=== PATIENT | male | born 1945 | race Caucasian/White ===

== ENCOUNTER 2021-07-08 20:53 | Emergency (ER) | payer MEDICARE, OTHER, SELFPAY ==
[2021-07-08 20:55] VITALS: BMI 28.7
--- NOTE | 2021-07-08 21:15 | ED_ITS ---
HPI - Allergic Reaction General: Chief complaint: Allergic Reaction Stated complaint: Allergic Reaction Time Seen by Provider: 07/08/21 21:03 Source: patient Mode of arrival: ambulatory Limitations: no limitations History of Present Illness: HPI narrative: 75-year-old male who has a history of a shrimp allergy. He states that he is eating about 3 and a seemingly believes he had a subsalicylate roughly 2 hours ago. He states started having a rash to his chest wall some burning on his lip. He denies any shortness of breath or throat swelling. He states that it is worsened over the last hour is not taking any meds. Associated symptoms: Deny abdominal pain, nausea or vomiting Review of Systems Const: Denies: fever(s), chills, body aches or change in appetite Eyes: Denies: blurry vision or eye discomfort ENMT: Denies: throat pain or dental pain Card: Denies: chest pain Resp: Denies: dyspnea GI: Denies: abdominal pain, nausea, vomiting or diarrhea : Denies: dysuria Musc: Denies: neck pain or back pain Skin/Breast: Reports: rash Neuro: Denies: headache(s) Psych: Denies: depression Baldo/Lymph: Denies: easy bruising All/Imm: Denies: urticaria Physical Exam Const: COMMON NORMALS: no acute distress, patient oriented x3 and healthy appearing HENMT: COMMON NORMALS: normocephalic and atraumatic HEAD & SCALP: normocephalic and atraumatic OTHER: No lip tongue or throat swelling Eye: COMMON NORMALS: Equal, round and reactive pupils present and EOMs intact bilaterally PUPIL: Yes Equal, round and reactive pupils present Neck/C-Spine: COMMON NORMALS: full ROM and supple Chest: COMMONS NORMALS: normal inspection of the chest and normal palpation of entire chest wall Resp: COMMON NORMALS: normal respiratory effort, No retractions, No use of accessory muscles and clear to auscultation bilaterally AUSCULTATION: clear to auscultation bilaterally Cardio: COMMON NORMALS: regular rate, regular rhythm and No murmurs present (Cardio) RATE: regular rate RHYTHM: regular rhythm GI: COMMON NORMALS: Normal to inspection, nondistended, normoactive bowel sounds present, Soft to palpation, non-tender and no masses PALPATION: Yes Soft to palpation Extremity: COMMON NORMALS: normal to inspection and full ROM Neuro: COMMON NORMALS: patient oriented x3, moves all extremities and no focal motor deficits Psych: COMMON NORMALS: mental status grossly normal, Normal thought process present and cooperative THOUGHT PROCESS: Normal thought process present Skin: COMMON NORMALS: no wounds NARRATIVE SKIN EXAM: Rash to chest refill Course Vital Signs: Vital signs: Vital Signs Pulse Rate 67 07/08/21 21:53 Respiratory Rate 94 H 07/08/21 21:53 Blood Pressure 143/85 07/08/21 21:53 Pulse Oximetry 97 07/08/21 21:53 MDM - Allergic Reaction MDM Narrative: Medical decision making narrative: Patient presents here with allergic reaction likely from shrimp. He is improving here is no signs of anaphylaxis or throat or lip swelling. His symptoms are improving we will place him on 5 days of steroids. Discharge Plan Discharge Patient Disposition: Home Clinical Impression: Allergic reaction Qualifiers: Encounter type: initial encounter Qualified Code(s): T78.40XA - Allergy, unspecified, initial encounter Condition: Stable Prescriptions: New prednisone 50 mg tablet 50 mg PO DAILY Qty: 5 RF: 0 Discharge Orders: Discharge ED (Routine); Ordered 07/08/21 Ordered By: Krunal Hough Discharge Diet: Advance as tolerated Discharge Activity: Resume usual activity Patient Instructions: General Allergic Reaction (ED) Coding Level of Care Code ED Engineering Programmer for Troy Plascencia Exam Comprehensive
[2021-07-08] MEDS: diphenhydrAMINE 50 mg/mL SDV 1mL IVP (21:20)
[2021-07-08] MEDS: famotidine 20 mg/2 mL INJ 40 MG IVP (21:25)
[2021-07-08 21:53] VITALS: BP 143/85; PULSE 67; RESP 94; O2SAT 97
[2021-07-08 22:18] VITALS: BP 145/84; PULSE 64; RESP 18; TEMP 36.9; O2SAT 96
== END 2021-07-08 22:22 | disposition home or self-care (01) ==
PROVIDERS: Emergency Provider Emergency Medicine
DX: T78.40XA Allergy, unspecified, initial encounter (principal)
CPT/HCPCS: 96374; 96375; 99283; J1200; J2930; J3490

== ENCOUNTER 2021-10-16 12:00 | Outpatient (CLI) | payer MEDICARE, OTHER, SELFPAY | END 2021-10-16 12:01 | disposition home or self-care (01) | LOC: SLEEP 10-17 08:45 | PROVIDERS: Visit Provider Family Medicine | DX: R40.0 Somnolence (principal); M19.90 Unspecified osteoarthritis, unspecified site | CPT/HCPCS: G0399 ==

== ENCOUNTER 2022-02-18 19:22 | Observation (INO) | payer MEDICARE, OTHER, SELFPAY ==
[2022-02-18] VITALS (7 sets, daily range): BP systolic 128–176; BP diastolic 74–86; PULSE 57–61; RESP 14–17; TEMP 36.3–36.9; O2SAT 91–98; BMI 27.6
--- NOTE | 2022-02-18 19:38 | CTR_ITS ---
PROCEDURE INFORMATION: Exam: CT Abdomen And Pelvis Without Contrast Exam date and time: 02/18/2022 8:03 PM Age: 76 years old Clinical indication: Abdominal pain; Periumbilical; Patient HX: Pain since this am. Denies n/v/d; Additional info: Abd pain TECHNIQUE: Imaging protocol: Computed tomography of the abdomen and pelvis without contrast. Radiation optimization: All CT scans at this facility use at least one of these dose optimization techniques: automated exposure control; mA and/or kV adjustment per patient size (includes targeted exams where dose is matched to clinical indication); or iterative reconstruction. COMPARISON: No relevant prior studies available. RADIATION DOSE METRICS: Total DLP (mGy-cm): 1813.74 FINDINGS: Heart: Mild cardiomegaly with coronary calcification. Next item liver is normal in size without cirrhosis. Multiple well-defined hypodense lesions are noted, likely multiple hepatic cysts, the largest measuring about 3 cm in the right lobe. Diaphragm: Hiatal hernia measuring about 3-4 cm. Liver: See Heart finding. Gallbladder and bile ducts: Normal. No calcified stones. No ductal dilation. Pancreas: Normal. No ductal dilation. Spleen: Normal. No splenomegaly. Adrenal glands: Normal. No mass. Kidneys and ureters: Bilateral simple renal cysts, the largest measuring 4.3 cm on the right and 3.5 cm on the left. Mildly atrophic left kidney with severe cortical irregularity and area of parenchymal thinning suggesting chronic scarring which could be the basis of prior infections or reflux nephropathy. There is minimal left hydronephrosis without obstructing calculi. Several punctate nonobstructing right renal calculi are noted, the largest cluster is in the right lower pole, measuring about 7 x 5 mm. Stomach and bowel: Small to moderate colonic stool burden. No significant colonic dilatation. There is diffuse [id number]-efahpiht small bowel dilatation with possible gradual transition in the right lower quadrant small bowel suggesting partial small bowel obstruction which may be on the basis of adhesion. No pneumatosis or suspicious bowel wall thickening however bowel wall assessment is limited due to lack of contrast. Colonic diverticulosis without imaging signs of diverticulitis. Appendix: No evidence of appendicitis. Intraperitoneal space: No free air, ascites or drainable abscess. Vasculature: No abdominal aortic aneurysm. Lymph nodes: No enlarged lymph nodes. Urinary bladder: Unremarkable as visualized. Reproductive: Moderate prostate enlargement with in central calcification. Bones/joints: Multilevel vertebral disc degeneration and endplate osteophytes. No acute osseous findings otherwise. Soft tissues: No acute findings. CT/CT abdomen pelvis wo con [id number] IMPRESSION: 1. Mild-moderate diffuse small bowel dilatation suggesting partial small-bowel obstruction, likely due to transition in the right lower quadrant distal small bowel and may be on the basis of adhesion. No free air, pneumatosis or suspicious bowel wall thickening however bowel wall assessment is limited due to lack of contrast. No abscess. 2. Small-moderate stool burden with colonic diverticulosis. No imaging signs of acute diverticulitis. 3. Nonacute bilateral renal findings and nonobstructing calculi as described. 4. Mild cardiomegaly with coronary calcification. 5. Hiatal hernia. 6. Multiple hepatic cysts. Enlarged prostate. COMMENTS: Consistent with the [employer]'s Incidental Findings Committee white paper (J Am Chrissy Radiol 2018): Any incidental renal lesion less than 1 cm or classified as too small to characterize, or any incidental cystic renal lesion characterized as simple-appearing, is likely benign. No follow-up imaging is recommended for these lesions per consensus recommendations based on imaging criteria.
--- NOTE | 2022-02-18 19:44 | W.ED.ABDPA2 ---
HPI - Abdominal Pain General: Chief Complaint: Abdominal Pain Stated Complaint: abd pain Time Seen by Provider: 02/18/22 19:30 Source: patient Mode of arrival: ambulatory Limitations: no limitations History of Present Illness: 76-year-old male states been having epigastric abdominal pain over the last 8 or 9 hours. He states been a cramping type pain that he rates a 4 out of 10 currently denies any worsening improving factors denies any vomiting or diarrhea no history of any abdominal surgeries. Denies any fevers. Associated Symptoms: Denies chills, dysuria and fever(s) Review of Systems Const: Denies: fever(s), chills, body aches or change in appetite Eyes: Denies: blurry vision or eye discomfort ENMT: Denies: throat pain or dental pain Card: Denies: chest pain Resp: Denies: dyspnea GI: Reports: abdominal pain : Denies: dysuria Musc: Denies: neck pain or back pain Skin/Breast: Denies: rash Neuro: Denies: headache(s) Psych: Denies: depression Baldo/Lymph: Denies: easy bruising All/Imm: Denies: urticaria PFS ED PFSH: Medical History (Updated 02/18/22 @ 20:53 by Krunal Hough MD) No pertinent past medical history Physical Exam Const: COMMON NORMALS: patient oriented x3 HENMT: COMMON NORMALS: normocephalic and atraumatic HEAD & SCALP: normocephalic and atraumatic Eye: COMMON NORMALS: Equal, round and reactive pupils present and EOMs intact bilaterally PUPIL: Yes Equal, round and reactive pupils present Neck/C-Spine: COMMON NORMALS: full ROM and supple Chest: COMMONS NORMALS: normal inspection of the chest and normal palpation of entire chest wall Resp: COMMON NORMALS: normal respiratory effort, No retractions, No use of accessory muscles and clear to auscultation bilaterally AUSCULTATION: clear to auscultation bilaterally Cardio: COMMON NORMALS: regular rate, regular rhythm and No murmurs present (Cardio) RATE: regular rate RHYTHM: regular rhythm GI: COMMON NORMALS: Normal to inspection, nondistended, normoactive bowel sounds present, Soft to palpation and no masses PALPATION: Yes Soft to palpation and Yes Tenderness to palpation present (GI) (epigastric) Extremity: COMMON NORMALS: normal to inspection and full ROM Neuro: COMMON NORMALS: patient oriented x3, moves all extremities and no focal motor deficits Psych: COMMON NORMALS: mental status grossly normal, Normal thought process present and cooperative THOUGHT PROCESS: Normal thought process present Skin: COMMON NORMALS: no rashes or lesions noted and no wounds GENERAL SKIN EXAM: no rashes or lesions noted Course Vital Signs: Vital signs: Vital Signs Temperature 97.4 F L 02/18/22 19:24 Pulse Rate 58 L 02/18/22 20:30 Respiratory Rate 16 02/18/22 19:40 Blood Pressure 128/77 02/18/22 20:30 Pulse Oximetry 94 02/18/22 20:30 MDM - Abdominal Pain Medical Decision Making Patient presents here with a small bowel obstruction. Patient's CT showed a partial small bowel obstruction with a possible transition point spoke to hospitalist will place NG tube and admit at this time. Lab Data : 02/18/22 19:40 02/18/22 19:40 Labs/Radiology: Radiology Impressions Abdomen/Pelvis CT 02/18/22 19:38 IMPRESSION: 1. Mild-moderate diffuse small bowel dilatation suggesting partial small-bowel obstruction, likely due to transition in the right lower quadrant distal small bowel and may be on the basis of adhesion. No free air, pneumatosis or suspicious bowel wall thickening however bowel wall assessment is limited due to lack of contrast. No abscess. 2. Small-moderate stool burden with colonic diverticulosis. No imaging signs of acute diverticulitis. 3. Nonacute bilateral renal findings and nonobstructing calculi as described. 4. Mild cardiomegaly with coronary calcification. 5. Hiatal hernia. 6. Multiple hepatic cysts. Enlarged prostate. COMMENTS: Consistent with the [employer]'s Incidental Findings Committee white paper (J Am Chrissy Radiol 2018): Any incidental renal lesion less than 1 cm or classified as too small to characterize, or any incidental cystic renal lesion characterized as simple-appearing, is likely benign. No follow-up imaging is recommended for these lesions per consensus recommendations based on imaging criteria. Laboratory Results WBC 11.8 10^3/uL (4.0-10.0) H 02/18/22 19:40 RBC 4.52 10^6/uL (4.1-5.3) 02/18/22 19:40 Hgb 14.5 g/dL (11.7-16.6) 02/18/22 19:40 Hct 41.2 % (42.0-52.0) L 02/18/22 19:40 MCV 91.2 fl (80-94) 02/18/22 19:40 MCH 32.1 pg (28.0-34.0) 02/18/22 19:40 MCHC 35.2 g/dL (30.0-36.0) 02/18/22 19:40 RDW 12.0 % (12.1-15.1) L 02/18/22 19:40 Plt Count 178 10^3/cmm (130-400) 02/18/22 19:40 MPV 9.9 fL (7.4-10.4) 02/18/22 19:40 Neut % (Auto) 79.6 % 02/18/22 19:40 Lymph % (Auto) 9.5 % 02/18/22 19:40 [place] % (Auto) 8.8 % 02/18/22 19:40 Eos % (Auto) 1.5 % 02/18/22 19:40 Baso % (Auto) 0.3 % 02/18/22 19:40 Neut # (Auto) 9.41 10^3/uL (1.8-7.7) H 02/18/22 19:40 Lymph # (Auto) 1.1 10^3/uL (0.8-4.8) 02/18/22 19:40 [place] # (Auto) 1.0 10^3/uL (0.2-0.9) H 02/18/22 19:40 Eos # (Auto) 0.2 10^3/uL (0.0-0.8) 02/18/22 19:40 Baso # (Auto) 0.0 10^3/uL (0.0-0.1) 02/18/22 19:40 Nucleated RBC % (auto) 0 % 02/18/22 19:40 Nucleated RBCs # 0.0 /100WBC 02/18/22 19:40 Sodium 142 mmol/L (136-145) 02/18/22 19:40 Potassium 4.0 mmol/L (3.5-5.1) 02/18/22 19:40 Chloride 108 mmol/L (98-107) H 02/18/22 19:40 Carbon Dioxide 22 mmol/L (22-29) 02/18/22 19:40 Anion Gap 16.0 (5-19) 02/18/22 19:40 BUN 23 mg/dL (8-23) 02/18/22 19:40 Creatinine 1.3 mg/dL (0.7-1.2) H 02/18/22 19:40 GFR Calculation Not Reportable 02/18/22 19:40 Glucose 153 mg/dL (65-115) H 02/18/22 19:40 Calculated Osmolality 301 mOsm/kg (285-295) H 02/18/22 19:40 Calcium 9.2 mg/dL (8.5-10.5) 02/18/22 19:40 Total Bilirubin 0.4 mg/dL (0.15-1.2) 02/18/22 19:40 AST 19 U/L (0-40) 02/18/22 19:40 ALT 13 U/L (0-41) 02/18/22 19:40 Alkaline Phosphatase 81 IU/L (40-130) 02/18/22 19:40 Total Protein 7.0 g/dL (6.6-8.7) 02/18/22 19:40 Albumin 4.4 g/dL (3.5-5.2) 02/18/22 19:40 Globulin 2.6 g/dL (1.3-4.6) 02/18/22 19:40 Lipase 39 U/L (13-60) 02/18/22 19:40 Discharge Plan Discharge Patient Disposition: Admitted As Inpatient Admit Provider: José López Clinical Impression: Small bowel obstruction Condition: Stable Coding Level of Care Code 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
[2022-02-18] MEDS: ondansetron 2 mg/ML SDV 2 mL 4 MG IVP (19:45)
[2022-02-18] MEDS: sodium chloride 0.9% 1,000 ML 999 ML IV (19:46)
[2022-02-18] MEDS: morphine 4 mg/mL SDV 1 mL IVP (19:46)
[2022-02-18 19:47] LABS: Basophils % 0.3 %; Eosinophils # 0.2 10^3/uL (0.0-0.8); Eosinophils % 1.5 %; Hematocrit 41.2 % (42.0-52.0); Hemoglobin 14.5 g/dL (11.7-16.6); Lymphocytes # 1.1 10^3/uL (0.8-4.8); Lymphocytes % 9.5 %; Mean Corpuscular HGB Conc 35.2 g/dL (30.0-36.0); Mean Corpuscular Hemoglobin 32.1 pg (28.0-34.0); Mean Corpuscular Volume 91.2 fl (80-94); Mean Platelet Volume 9.9 fL (7.4-10.4); Monocytes % 8.8 %; Neutrophils # 9.41 10^3/uL (1.8-7.7); Neutrophils % 79.6 %; Nucleated Red Blood Cells % 0 %; Platelet Count 178 10^3/cmm (130-400); Red Blood Count 4.52 10^6/uL (4.1-5.3); White Blood Count 11.8 10^3/uL (4.0-10.0)
[2022-02-18 20:08] LABS: Alanine Aminotransferase 13 U/L (0-41); Albumin Level 4.4 g/dL (3.5-5.2); Alkaline Phosphatase 81 IU/L (40-130); Aspartate Amino Transferase 19 U/L (0-40); Blood Urea Nitrogen 23 mg/dL (8-23); Calcium 9.2 mg/dL (8.5-10.5); Carbon Dioxide 22 mmol/L (22-29); Chloride 108 mmol/L (98-107); Globulin 2.6 g/dL (1.3-4.6); Glucose 153 mg/dL (65-115); Lipase 39 U/L (13-60); Osmolality Calculated 301 mOsm/kg (285-295); Sodium 142 mmol/L (136-145); Total Bilirubin 0.4 mg/dL (0.15-1.2)
[2022-02-18] MEDS: LORazepam 2 mg/mL INJ 1 mL 1 MG IVP (20:55)
--- NOTE | 2022-02-18 21:56 | XRR_ITS ---
PROCEDURE INFORMATION: Exam: XR Abdomen Exam date and time: 02/18/2022 10:10 PM Age: 76 years old Clinical indication: Device placement; Gi device; Nasogastric tube; Additional info: Ng tube TECHNIQUE: Imaging protocol: XR of the abdomen. Views: Frontal supine view of the abdomen. 1 View. COMPARISON: CT abdomen pelvis con [id number] 02/18/2022 8:03 PM FINDINGS: Tubes, catheters and devices: Single supine view was submitted for NG tube placement. The inferior and right lateral aspect of the abdomen are not included. NG tube with tip in the proximal/mid gastric region. Gastrointestinal tract: Diffuse [id number] air-filled small bowel distension is seen similar to recent CT exam suggestive of small bowel obstruction. No obvious pneumatosis. Bones/joints: No acute findings. XR/XR KUB [id number] IMPRESSION: NG tube with tip in the proximal/mid gastric region. Other findings as above.
--- NOTE | 2022-02-18 22:56 | PM.HP ---
Providers/Chief Complaint Admitting Physician: José López MD Chief Complaint: abd pain History of Present Illness Iron Hyman is a 76 year old male with a past medical history of hypertension, BPH, history of nephrolithiasis who presents [facility] due to 1 day history of lower abdominal pain. Patient tells me that he woke up this morning with lower abdominal pain, denies any nausea, no vomiting, his last bowel movement was just before he came to the emergency room, no history of GI bleeds, no history of bloody or black stools. No dysuria, no hematuria, has a history of nephrolithiasis, denies any flank pain, no lightheadedness, dizziness, no diarrhea, no history of food poisoning, no history abdominal surgery, no fevers, no chills Review of Systems Const: Denies: fever(s), chills, fatigue or malaise Eyes: Denies: change in vision Card: Denies: chest pain, palpitations, lightheadedness, dyspnea on exertion or orthopnea Resp: Denies: dyspnea, productive cough, non-productive cough or wheezing GI: Denies: nausea, vomiting, hematemesis, diarrhea, constipation, hematochezia or melena : Denies: flank pain, difficulty urinating, dysuria or urinary frequency Musc: Denies: back pain Neuro: Denies: headache(s), dizziness or vertigo Medications/Allergies Home Medications Medication Instructions Recorded Confirmed Last Taken Type amlodipine 10 mg tablet 10 mg PO DAILY 02/18/22 02/18/22 02/18/22 History ascorbic acid (vitamin C) 100 mg 100 mg PO DAILY 02/18/22 02/18/22 02/18/22 History tablet (Vitamin C) baclofen 10 mg tablet 10 mg PO DAILY 02/18/22 02/18/22 02/18/22 History benazepril 40 mg tablet 40 mg PO DAILY 02/18/22 02/18/22 02/18/22 History cholecalciferol (vitamin D3) 25 25 mcg PO DAILY 02/18/22 02/18/22 02/18/22 History mcg (1,000 unit) tablet (Vitamin D3) metoprolol succinate 100 mg 100 mg PO DAILY 02/18/22 02/18/22 02/18/22 History tablet,extended release 24 hr omeprazole 40 mg capsule,delayed 40 mg PO DAILY 02/18/22 02/18/22 02/18/22 History release tamsulosin 0.4 mg capsule 0.4 mg PO BID 02/18/22 02/18/22 02/18/22 History vitamin K2 40 mcg tablet 40 mcg PO DAILY 02/18/22 02/18/22 02/18/22 History Allergies Allergy/AdvReac Type Severity Reaction Status Date / Time Penicillins Allergy ALGY-Hives Verified 02/18/22 20:30 shrimp Allergy ALGY-Anaphy Verified 02/18/22 20:30 laxis PFSH Acute PFSH: Medical History (Updated 02/18/22 @ 20:53 by Krunal Hough MD) No pertinent past medical history Surgical History (Updated 02/18/22 @ 22:59 by José López MD) History of lithotripsy Family History (Updated 02/18/22 @ 22:58 by José López MD) Mother Lung disease Lung cancer Father Lung cancer Social History (Updated 02/18/22 @ 22:58 by José López MD) Smoking and tobacco status: never smoked Alcohol intake: never Substance/Drug Use: never Vitals/I&O/Wt Last Vital Signs Temp 97.4 F L 02/18/22 19:24 Pulse 57 L 02/18/22 21:28 Resp 16 02/18/22 19:40 BP 140/82 02/18/22 21:28 Pulse Ox 91 02/18/22 21:28 02/18/22 02/18/22 02/18/22 06:59 14:59 22:59 Intake Total 1000 / 1000 Balance 1000 / 1000 Weight last 48 hrs Weight 88.451 kg Physical Exam Const: COMMON NORMALS: no acute distress and patient oriented x3 HENMT: COMMON NORMALS: normocephalic HEAD & SCALP: normocephalic Eye: COMMON NORMALS: EOMs intact bilaterally Neck/C-Spine: COMMON NORMALS: no JVD Lymph: LYMPHATIC: no lymphadenopathy noted Resp: COMMON NORMALS: normal respiratory effort, No retractions, No use of accessory muscles and clear to auscultation bilaterally AUSCULTATION: clear to auscultation bilaterally Cardio: COMMON NORMALS: no JVD, regular rate, regular rhythm, S1 normal heart sound present and S2 normal heart sound present RATE: regular rate RHYTHM: regular rhythm HEART SOUNDS: S1 normal heart sound present and S2 normal heart sound present GI: INSPECTION: Yes abdominal distension AUSCULTATION: Yes Hypoactive bowel sounds present PALPATION: Yes Soft to palpation, Yes Tenderness to palpation present (GI) Details: LLQ and RLQ, No Guarding due to palpation present (GI), No Rigid due to palpation and Yes No hepatosplenomegaly present : COMMON NORMALS: Yes no CVA tenderness Extremity: COMMON NORMALS: capillary refill normal, no clubbing, cyanosis or edema, no calf tenderness and no pedal edema Neuro: COMMON NORMALS: patient oriented x3, CN's II-XII intact bilaterally, moves all extremities and no focal motor deficits Psych: COMMON NORMALS: mental status grossly normal Data : 02/18/22 19:40 02/18/22 19:40 A&P Assessment and plan (1) Small bowel obstruction: Status: Acute Plan Partial small bowel obstruction 1. Mild-moderate diffuse small bowel dilatation suggesting partial small-bowel obstruction, likely due to transition in the right lower quadrant distal small bowel and may be on the basis of adhesion. No free air, pneumatosis or suspicious bowel wall thickening however bowel wall assessment is limited due to lack of contrast. No abscess. 2. Small-moderate stool burden with colonic diverticulosis. No imaging signs of acute diverticulitis. 3. Nonacute bilateral renal findings and nonobstructing calculi as described. 4. Mild cardiomegaly with coronary calcification. 5. Hiatal hernia. 6. Multiple hepatic cysts. Enlarged prostate. -Had a bowel movement just before he came to the emergency room -NG tube placed by ER to physician -For now keep n.p.o., IV fluids, serial abdominal exams -TSH, monitor electrolytes -Start bowel regimen -Advance diet as tolerated -Full code -Lovenox for DVT prophylaxis Acute kidney injury, start IV fluids Attestations Medical Necessity Statement*: Patient requires hospitalization for partial SBO, PABLO, outpatient with observation Coding Level of Care Code Acute Research/Program Director for [facility] Fwd Diagnoses Small bowel obstruction K56.609
[2022-02-18] MEDS: pantoprazole 40 mg SDV IVP (23:33)
[2022-02-18] MEDS: enoxaparin 40 mg/0.4 mL Syringe SUBCUT (23:33)
[2022-02-18] MEDS: sodium chloride 0.9% 1,000 ML 75 ML IV (23:33)
[2022-02-19] VITALS (10 sets, daily range): BP systolic 149–170; BP diastolic 80–89; PULSE 56–69; RESP 16–18; TEMP 36.2–37; O2SAT 92–98
[2022-02-19 00:11] LABS: Thyroid Stimulating Hormone 1.57 uIU/mL (0.27-4.20)
[2022-02-19 00:27] LABS: Gamma Glutamyl Transferase 15 U/L (8-61)
[2022-02-19 02:39] LABS: Add Urine Microscopic? YES; Bacteria Urine TRACE /hpf; Bilirubin Urine Neg (Negative); Blood Urine Neg (Negative); Glucose Urine UA Norm (Normal); Hyaline Casts Urine RARE /lpf; Ketones Urine Negative (Negative); Leukocyte Esterase Urine Trace (Negative); Nitrate Urine Negative (Negative); Protein Urine Neg (Negative); Urine Appearance Clear (CLEAR); Urine Color Yellow (Yellow); Urobilinogen Urine Norm (Negative); WBC Urine 0-4 /hpf (0-5); pH Urine 5 (5-7)
[2022-02-19 06:07] LABS: Basophils % 0.3 %; Eosinophils # 0.2 10^3/uL (0.0-0.8); Eosinophils % 1.9 %; Hematocrit 38.5 % (42.0-52.0); Hemoglobin 13.1 g/dL (11.7-16.6); Lymphocytes % 12.2 %; Mean Corpuscular Hemoglobin 31.5 pg (28.0-34.0); Mean Corpuscular Volume 92.5 fl (80-94); Mean Platelet Volume 9.9 fL (7.4-10.4); Monocytes # 0.8 10^3/uL (0.2-0.9); Monocytes % 10.6 %; Neutrophils # 5.94 10^3/uL (1.8-7.7); Neutrophils % 74.6 %; Nucleated Red Blood Cells % 0 %; Platelet Count 148 10^3/cmm (130-400); Red Blood Count 4.16 10^6/uL (4.1-5.3)
[2022-02-19 06:28] LABS: Alanine Aminotransferase 12 U/L (0-41); Albumin Level 3.6 g/dL (3.5-5.2); Alkaline Phosphatase 74 IU/L (40-130); Anion Gap 13.8 (5-19); Aspartate Amino Transferase 17 U/L (0-40); Blood Urea Nitrogen 18 mg/dL (8-23); Calcium 8.1 mg/dL (8.5-10.5); Carbon Dioxide 22 mmol/L (22-29); Chloride 110 mmol/L (98-107); Globulin 2.4 g/dL (1.3-4.6); Glucose 117 mg/dL (65-115); Osmolality Calculated 297 mOsm/kg (285-295); Phosphorus 3.8 mg/dL (2.5-4.5); Potassium 3.8 mmol/L (3.5-5.1); Sodium 142 mmol/L (136-145); Total Bilirubin 0.6 mg/dL (0.15-1.2)
[2022-02-19] MEDS: polyethylene glycol 3350 Pkt 17 gm PO (09:16)
[2022-02-19] MEDS: docusate sodium 100 mg Capsule PO ×2 (09:16→17:28)
[2022-02-19] MEDS: cholecalciferol (vitamin D3) 1,000 unit Tablet 1000 UNIT PO (09:16)
[2022-02-19] MEDS: metoprolol succinate ER (24 HR) 100 mg Tablet PO (09:16)
[2022-02-19] MEDS: baclofen 10 mg Tablet PO (09:16)
[2022-02-19] MEDS: tamsulosin 0.4 mg Capsule PO ×2 (09:16→17:28)
[2022-02-19] MEDS: ascorbic acid 500 mg Tablet PO (09:16)
[2022-02-19] MEDS: amlodipine 10 mg Tablet PO (09:17)
[2022-02-19] MEDS: sodium chloride 0.9% 1,000 ML 75 ML IV (13:46)
--- NOTE | 2022-02-19 16:04 | PM.PN ---
Subjective Subjective: Patient says has passed gas today abdomen is softer and he no longer has pain Patient tells me he has a soft bowel movement most days without struggling. He does have diarrhea on occasion i.e. every couple of weeks denies hard stools or constipation. He has been on amlodipine. He has not noted that it has caused him any problems. Patient reports lithotripsy for kidney stones. He is also had right inguinal herniorrhaphy open with mesh for a large hernia in the 1970s and left side small hernia similar surgery. Patient has had endoscopic hiatal hernia repair Vitals/I&O/Wt Last Vital Signs Temp 97.2 F L 02/19/22 15:09 Pulse 69 02/19/22 15:09 Resp 18 02/19/22 15:09 BP 149/83 02/19/22 15:09 Pulse Ox 93 02/19/22 15:09 02/19/22 02/19/22 02/19/22 06:59 14:59 22:59 Intake Total 1000 / 1000 Output Total 550 / 550 200 / 200 Balance -550 / 450 800 / 800 Weight last 48 hrs Weight 89.811 kg Weight 88.451 kg Physical Exam Narrative: General well-developed well-nourished male in no acute cardiopulmonary stress he is alert oriented pleasant CV regular rate and rhythm with a 5/6 systolic ejection murmur best heard at the right upper sternal border Lungs clear to auscultation bilaterally Abdomen diminished bowel tones soft nondistended Calves no tenderness pedal edema Neuro speech is clear he is alert and oriented x3 Mentation mood and affect are normal Data : 02/19/22 05:42 02/19/22 05:42 A&P Assessment and plan (1) Small bowel obstruction: Advance diet clamp NG tube. Status: Acute (2) Hypertension: Continue metoprolol and benazepril. Hold amlodipine. Stop baclofen. Status: Acute Attestations Medical Necessity Statement*: Patient's diet will be advanced to clears. Activity ambulate every 2 hours 4 times around the unit. KUB and upright in the morning. Anticipate discharge home then. Continue IV fluids. Time Spent in Patient Care: Greater than 35 minutes Coding Level of Care Code Acute Scientific Associate for Troy Plascencia Diagnoses Small bowel obstruction K56.609 Hypertension I10
--- NOTE | 2022-02-19 16:27 | PC.NURSE ---
PATIENT WAS SCHEDULED FOR AN ECHO TOMORROW AT A DIFFERENT HOSPITAL. THE OTHER FACILITY IS SENDING A REFERRAL HERE FOR HIM TO HAVE IT DONE WHILE HE'S INPATIENT. ORDERS HAVE NOT COME THROUGH AT THIS TIME. DR. STARK NOTIFIED.
[2022-02-20] VITALS: BP 146/75; PULSE 62; RESP 17; TEMP 36.3; O2SAT 96
--- NOTE | 2022-02-20 | XRR_ITS ---
[facility] Final Radiology Report Call: [phone] assistance Online chat: [email or web address] Name: RENAE BERNSTEIN Age: 76Years M Date: 02/20/2022 SSN: -- : 1945 Study: XR ABDOMEN 2 VIEWS Requesting Physician: Phong Bernal Images: 2 Add?l Studies: Provided Clinical History: sbo, flat and upright PROCEDURE INFORMATION: Exam: XR Abdomen Exam date and time: 02/20/2022 8:18 AM Age: 76 years old Clinical indication: Condition or disease; Intestinal condition; Obstruction; Additional info: Sbo, flat and upright TECHNIQUE: Imaging protocol: XR of the abdomen. Views: 2 Views. Upright and supine views. COMPARISON: CR (ABDOMEN, ) 02/18/2022 10:10 PM FINDINGS: Tubes, catheters and devices: NG tube terminates in the region of the gastric cardia. The side port is in the region of the distal esophagus. Gastrointestinal tract: Improved dilation of small bowel loops. Intraperitoneal space: Normal. No free air. Bones/joints: Unremarkable for age. IMPRESSION: Improved dilation of small bowel loops, which may reflect a resolving small- bowel obstruction. Thank you for allowing us to participate in the care of your patient. Dictated and Authenticated by: Bertha Preciado MD 02/20/2022 8:29 AM Central Time ([place] & [place]) [facility]
[2022-02-20] MEDS: enoxaparin 40 mg/0.4 mL Syringe SUBCUT (00:14)
[2022-02-20] MEDS: pantoprazole 40 mg SDV IVP (00:14)
[2022-02-20] MEDS: sodium chloride 0.9% 1,000 ML 75 ML IV (03:24)
[2022-02-20 04:00] VITALS: BP 147/79; PULSE 60; RESP 18; TEMP 36.7; O2SAT 93
[2022-02-20 05:55] LABS: Basophils % 0.1 %; Eosinophils # 0.2 10^3/uL (0.0-0.8); Eosinophils % 2.1 %; Hematocrit 39.1 % (42.0-52.0); Lymphocytes # 1.1 10^3/uL (0.8-4.8); Lymphocytes % 14.3 %; Mean Corpuscular HGB Conc 35.8 g/dL (30.0-36.0); Mean Corpuscular Hemoglobin 32.4 pg (28.0-34.0); Mean Corpuscular Volume 90.5 fl (80-94); Mean Platelet Volume 9.8 fL (7.4-10.4); Monocytes # 0.8 10^3/uL (0.2-0.9); Monocytes % 10.3 %; Neutrophils # 5.63 10^3/uL (1.8-7.7); Neutrophils % 73.1 %; Nucleated Red Blood Cells % 0 %; Platelet Count 166 10^3/cmm (130-400); Red Blood Count 4.32 10^6/uL (4.1-5.3); Red Cell Distribution Width 11.8 % (12.1-15.1); White Blood Count 7.7 10^3/uL (4.0-10.0)
[2022-02-20 06:15] LABS: Alanine Aminotransferase 9 U/L (0-41); Albumin Level 3.7 g/dL (3.5-5.2); Alkaline Phosphatase 78 IU/L (40-130); Anion Gap 13.8 (5-19); Aspartate Amino Transferase 18 U/L (0-40); Blood Urea Nitrogen 12 mg/dL (8-23); Calcium 8.7 mg/dL (8.5-10.5); Carbon Dioxide 24 mmol/L (22-29); Chloride 106 mmol/L (98-107); Globulin 2.5 g/dL (1.3-4.6); Glucose 105 mg/dL (65-115); Magnesium 1.9 mg/dL (1.7-2.3); Osmolality Calculated 290 mOsm/kg (285-295); Phosphorus 3.2 mg/dL (2.5-4.5); Potassium 3.8 mmol/L (3.5-5.1); Sodium 140 mmol/L (136-145); Total Protein 6.2 g/dL (6.6-8.7)
[2022-02-20 07:50] VITALS: BP 166/85; PULSE 58; RESP 17; TEMP 36.7; O2SAT 95
[2022-02-20] MEDS: metoprolol succinate ER (24 HR) 100 mg Tablet PO (08:53)
[2022-02-20] MEDS: docusate sodium 100 mg Capsule PO (08:53)
[2022-02-20] MEDS: cholecalciferol (vitamin D3) 1,000 unit Tablet 1000 UNIT PO (08:53)
[2022-02-20] MEDS: ascorbic acid 500 mg Tablet PO (08:53)
[2022-02-20] MEDS: tamsulosin 0.4 mg Capsule PO (08:53)
[2022-02-20] MEDS: polyethylene glycol 3350 Pkt 17 gm PO (08:54)
--- NOTE | 2022-02-20 09:07 | PC.NURSE ---
NG tube discontinued. Patient stated It fell out. I was trying to eat and it just came out.
[2022-02-20 11:17] VITALS: BP 154/71; PULSE 78; RESP 17; TEMP 36.9; O2SAT 98
--- NOTE | 2022-02-20 11:58 | PM.DCS ---
Discharge Providers Date of Admission: 02/18/22 20:41 Date of Discharge: February 20, 2022 Attending Provider at Admission: José López MD Attending Provider at Discharge: Phong Bernal MD Diagnoses at Discharge Discharge Diagnosis (1) Small bowel obstruction: Details from hospital stay: Patient has had bilateral inguinal hernias repaired long ago in the per his recollection Small bowel obstruction resolved following half a day of NG tube suction clamped half a day and ambulating he had a bowel movement this morning Medication risk factors include amlodipine which I resumed and Bentyl which I stopped Status: Acute (2) Hypertension: Details from hospital stay: Stable. He does have amlodipine on his med rec but states that he usually does not have constipation. Status: Acute Reason for Visit Reason for Visit: abd pain Hospital Course Hospital Course 76-year-old male had his first small bowel obstruction as evidenced by abdomen x-ray and CT scan. He has had a endoscopic hiatal hernia repair through the esophagus which I do not think would put him at any increased risk. He has had remote bilateral hernia repair repair right and left inguinal in the . He is on amlodipine and Bentyl but I stopped the Bentyl. The patient had NG tube suction from emergency department until yesterday evening. I clamped the NG tube and start him on clear liquid diet and ambulation 4 laps around the unit every 2 hours. He passed additional gas and a bowel movement this morning NG tube he sneezed out this morning with breakfast but is no longer needed. Patient has a known heart murmur which he will have evaluated by repeat echocardiogram and follow-up with his primary care physician. Physical Exam Narrative: General well-developed well-nourished male in no acute cardiopulmonary stress he is alert oriented pleasant CV regular rate and rhythm with a 5/6 systolic ejection murmur best heard at the right upper sternal border Lungs clear to auscultation bilaterally Abdomen diminished bowel tones soft nondistended Calves no tenderness pedal edema Neuro speech is clear he is alert and oriented x3 Mentation mood and affect are normal Discharge Data Studies Completed and Pending Completed Studies During Hospitalization Category Date Time Status CT abdomen pelvis wo con [id number] Urgent Cat Scan 02/18/22 19:38 Completed XR KUB [id number] Routine Exams 02/18/22 21:56 Completed Pending at discharge Category Date Time Status XR abdomen min 2V [id number] Routine Exams 02/20/22 08:10 Taken Complete Blood Count w/Auto AM LABS Lab 02/21/22 04:00 Ordered Comprehensive Metabolic Panel AM LABS Lab 02/21/22 04:00 Ordered Magnesium AM LABS Lab 02/21/22 04:00 Ordered Phosphorus AM LABS Lab 02/21/22 04:00 Ordered Urinalysis Stat Lab 02/19/22 09:36 Ordered Radiology Impressions Abdomen/Pelvis CT 02/18/22 19:38 IMPRESSION: 1. Mild-moderate diffuse small bowel dilatation suggesting partial small-bowel obstruction, likely due to transition in the right lower quadrant distal small bowel and may be on the basis of adhesion. No free air, pneumatosis or suspicious bowel wall thickening however bowel wall assessment is limited due to lack of contrast. No abscess. 2. Small-moderate stool burden with colonic diverticulosis. No imaging signs of acute diverticulitis. 3. Nonacute bilateral renal findings and nonobstructing calculi as described. 4. Mild cardiomegaly with coronary calcification. 5. Hiatal hernia. 6. Multiple hepatic cysts. Enlarged prostate. COMMENTS: Consistent with the [employer]'s Incidental Findings Committee white paper (J Am Chrissy Radiol 2018): Any incidental renal lesion less than 1 cm or classified as too small to characterize, or any incidental cystic renal lesion characterized as simple-appearing, is likely benign. No follow-up imaging is recommended for these lesions per consensus recommendations based on imaging criteria. KUB X-Ray 02/18/22 21:56 IMPRESSION: NG tube with tip in the proximal/mid gastric region. Other findings as above. Laboratory Results WBC 7.7 10^3/uL (4.0-10.0) 02/20/22 05:25 RBC 4.32 10^6/uL (4.1-5.3) 02/20/22 05:25 Hgb 14.0 g/dL (11.7-16.6) 02/20/22 05:25 Hct 39.1 % (42.0-52.0) L 02/20/22 05:25 MCV 90.5 fl (80-94) 02/20/22 05:25 MCH 32.4 pg (28.0-34.0) 02/20/22 05:25 MCHC 35.8 g/dL (30.0-36.0) D 02/20/22 05:25 RDW 11.8 % (12.1-15.1) L 02/20/22 05:25 Plt Count 166 10^3/cmm (130-400) 02/20/22 05:25 MPV 9.8 fL (7.4-10.4) 02/20/22 05:25 Neut % (Auto) 73.1 % 02/20/22 05:25 Lymph % (Auto) 14.3 % 02/20/22 05:25 [place] % (Auto) 10.3 % 02/20/22 05:25 Eos % (Auto) 2.1 % 02/20/22 05:25 Baso % (Auto) 0.1 % 02/20/22 05:25 Neut # (Auto) 5.63 10^3/uL (1.8-7.7) 02/20/22 05:25 Lymph # (Auto) 1.1 10^3/uL (0.8-4.8) 02/20/22 05:25 [place] # (Auto) 0.8 10^3/uL (0.2-0.9) 02/20/22 05:25 Eos # (Auto) 0.2 10^3/uL (0.0-0.8) 02/20/22 05:25 Baso # (Auto) 0.0 10^3/uL (0.0-0.1) 02/20/22 05:25 Nucleated RBC % (auto) 0 % 02/20/22 05:25 Nucleated RBCs # 0.0 /100WBC 02/20/22 05:25 Sodium 140 mmol/L (136-145) 02/20/22 05:25 Potassium 3.8 mmol/L (3.5-5.1) 02/20/22 05:25 Chloride 106 mmol/L (98-107) 02/20/22 05:25 Carbon Dioxide 24 mmol/L (22-29) 02/20/22 05:25 Anion Gap 13.8 (5-19) 02/20/22 05:25 BUN 12 mg/dL (8-23) 02/20/22 05:25 Creatinine 1.0 mg/dL (0.7-1.2) 02/20/22 05:25 GFR Calculation Not Reportable 02/20/22 05:25 Glucose 105 mg/dL (65-115) 02/20/22 05:25 Calculated Osmolality 290 mOsm/kg (285-295) 02/20/22 05:25 Calcium 8.7 mg/dL (8.5-10.5) 02/20/22 05:25 Phosphorus 3.2 mg/dL (2.5-4.5) 02/20/22 05:25 Magnesium 1.9 mg/dL (1.7-2.3) 02/20/22 05:25 Total Bilirubin 1.0 mg/dL (0.15-1.2) 02/20/22 05:25 GGT 15 U/L (8-61) 02/18/22 19:40 AST 18 U/L (0-40) 02/20/22 05:25 ALT 9 U/L (0-41) 02/20/22 05:25 Alkaline Phosphatase 78 IU/L (40-130) 02/20/22 05:25 C-Reactive Protein 3.0 mg/L (0.0-4.9) 02/18/22 19:40 Total Protein 6.2 g/dL (6.6-8.7) L 02/20/22 05:25 Albumin 3.7 g/dL (3.5-5.2) 02/20/22 05:25 Globulin 2.5 g/dL (1.3-4.6) 02/20/22 05:25 Lipase 39 U/L (13-60) 02/18/22 19:40 TSH 1.57 uIU/mL (0.27-4.20) 02/18/22 19:40 Urine Color Yellow (Yellow) 02/19/22 02:08 Urine Appearance Clear (CLEAR) 02/19/22 02:08 Urine pH 5 (5-7) 02/19/22 02:08 Ur Specific [place] 1.020 (1.005-1.030) 02/19/22 02:08 Urine Protein Neg (Negative) 02/19/22 02:08 Urine Glucose (UA) Norm (Normal) 02/19/22 02:08 Urine Ketones Negative (Negative) 02/19/22 02:08 Urine Blood Neg (Negative) 02/19/22 02:08 Urine Nitrate Negative (Negative) 02/19/22 02:08 Urine Bilirubin Neg (Negative) 02/19/22 02:08 Urine Urobilinogen Norm mg/dL (Negative) 02/19/22 02:08 Ur Leukocyte Esterase Trace (Negative) H 02/19/22 02:08 Urine RBC None /hpf (0-2) 02/19/22 02:08 Urine WBC 0-4 /hpf (0-5) H 02/19/22 02:08 Ur Squamous Epith Cells None /hpf (0-5) 02/19/22 02:08 Amorphous Sediment Not Reportable 02/19/22 02:08 Urine Bacteria Trace /hpf (NONE) 02/19/22 02:08 Hyaline Casts Rare /lpf 02/19/22 02:08 Vitals Last Vital Signs Temp 98.5 F 02/20/22 11:17 Pulse 78 02/20/22 11:17 Resp 17 02/20/22 11:17 BP 154/71 02/20/22 11:17 Pulse Ox 98 02/20/22 11:17 Discharge Plan Discharge Patient Disposition: Home Condition: Stable Prescriptions: New docusate sodium 100 mg Capsule 100 mg PO BID Qty: 60 0RF polyethylene glycol 3350 17 gram Powder In Packet 17 g PO DAILY Qty: 30 0RF Rx Instructions: Hold if you have loose stools Continued metoprolol succinate 100 mg tablet extended release 24 hr 100 mg PO DAILY 0RF omeprazole 40 mg capsule,delayed release(DR/EC) 40 mg PO DAILY 0RF tamsulosin 0.4 mg capsule 0.4 mg PO BID 0RF amlodipine 10 mg tablet 10 mg PO DAILY 0RF Vitamin C 100 mg Tablet 100 mg PO DAILY 0RF benazepril 40 mg tablet 40 mg PO DAILY 0RF Vitamin D3 25 mcg (1,000 unit) Tablet 25 mcg PO DAILY 0RF vitamin K2 40 mcg Tablet 40 mcg PO DAILY 0RF Discontinued baclofen 10 mg Tablet 10 mg PO DAILY 0RF Discharge Orders: Discharge Order (Routine); Ordered 02/20/22 Ordered By: Phong Bernal Discharge Diet: Cardiac Discharge Activity: Increase activity as tolerated Patient Instructions: Opioid Safety Activity Restrictions/Additional Instructions: Ambulate 1 mile daily as this will help your blood pressure as well as keep your bowels functioning regularly Discharge Attestations Time Spent in Discharge Care*: greater than 30 min Quality Metrics Clinical Quality Measures [ No reported AMI, CVA or VTE this stay] Coding Level of Care Code Acute Chg FW DC note Diagnoses Small bowel obstruction K56.609 Hypertension I10
[2022-02-20 12:27] VITALS: BP 154/71; PULSE 78; RESP 17; TEMP 36.9; O2SAT 98
== END 2022-02-20 13:00 | disposition home or self-care (01) ==
LOC: ER 20:53 → MEDSURG 21:13
PROVIDERS: Admitting Provider Family Medicine; Emergency Provider Emergency Medicine; Visit Provider Internal Medicine
DX: K56.609 Unspecified intestinal obstruction, unspecified as to partial versus complete obstruction (principal); I10 Essential (primary) hypertension
CPT/HCPCS: 74018; 74019; 74176; 80053; 81001; 82977; 83690; 83735; 84100; 84443; 85025; 86140; 94664; 96372; 96374; 96375; 99285; C9113; G0378; J1650; J2060; J2270; J2405; J7030

== ENCOUNTER 2022-03-01 06:01 | Outpatient (CLI) | payer MEDICARE, OTHER, SELFPAY ==
--- NOTE | 2022-03-01 | USCV_ITS ---
Iron Hyman Age: 76 Gender: M : 1945 Exam Date: 03/01/2022 06:14 Ordering Phys: Errol Hernandez XX Technologist: DIVINE Exam Location: [facility] – [place] Indication: CARDIAC MURMUR BP: 126 / 82 HR: 49 Rhythm: Sinus Technical Quality: Adequate MEASUREMENTS (Male / Female) Normal Values 2D ECHO LV Diastolic Diameter PLAX 4.7 cm 4.2 - 5.9 / 3.9 - 5.3 cm LV Systolic Diameter PLAX 3.0 cm IVS Diastolic Thickness 1.3 cm 0.6 - 1.0 / 0.6 - 0.9 cm IVS Systolic Thickness 1.9 cm LVPW Diastolic Thickness 1.3 cm 0.6 - 1.0 / 0.6 - 0.9 cm LVPW Systolic Thickness 1.7 cm LVOT Diameter 2.0 cm LV Ejection Fraction 2D Teich 66.0 % LV Ejection Fraction MOD 2C 68.3 % LV Ejection Fraction 2C AL 69.2 % LA Diameter 4.2 cm LA Width 3.8 cm LA Height 4.9 cm RA Width 4.6 cm RA Height 5.0 cm Aorta at Sinotubular Diameter 1.9 cm M-MODE Aortic Annulus Diameter 2.9 cm LA Ao Ratio MM 1.3 MV E Point Septal Separation 0.5 cm DOPPLER AV Peak Velocity 283.5 cm/s LVOT Peak Velocity 151.0 cm/s AV Area Cont Eq vti 1.7 cm squared AV Area Cont Eq pk 1.7 cm squared MV Peak Velocity 153.0 cm/s MV Area PHT 2.2 cm squared Mitral E to A Ratio 0.7 MV E' Velocity 42.5 cm/s Mitral E to MV E' Ratio 10.4 Mitral E to LV E' Lateral Ratio 8.9 Mitral E to LV E' Septal Ratio 12.4 TR Peak Velocity 91.0 cm/s TR Peak Gradient 3.3 mmHg TR Mean Velocity 89.4 cm/s TR Mean Gradient 3.7 mmHg TR Velocity Time Integral 34.3 cm Right Atrial Pressure 8.0 mmHg Pulmonary Artery Systolic Pressu 11.3 mmHg PV Peak Velocity 95.0 cm/s RV Acceleration Time 0.1 s RV Ejection Time 0.4 s RV AcT/ET 0.2 FINDINGS Left Ventricle Normal left ventricular size and systolic function, EF 64 %. Mild left ventricular hypertrophy. No regional wall motion abnormalities. Right Ventricle The right ventricle is normal in size and function. Right Atrium Mildly increased right atrial size. Left Atrium Mildly increased left atrial size. Mitral Valve Thickened mitral valve. Trace to mild mitral valve regurgitation. Aortic Valve [id number] aortic valve regurgitation. Mild aortic valve stenosis, mean gradient 17.3 mmHg, DEAN 1.7 cm squared. Peak velocity of 2.83 m/s with a peak gradient of 30 mmHg Tricuspid Valve Trace tricuspid valve regurgitation. Estimated pulmonary artery peak systolic pressure, within normal limits Pulmonic Valve Structurally normal pulmonic valve. Pericardium Normal pericardium without effusion. Aorta Normal ascending aorta dimension. IVC Could not be visualized well CONCLUSIONS Normal left ventricular size and systolic function, EF 64 %. Mild left ventricular hypertrophy. No regional wall motion abnormalities. Mild biatrial enlargement. Mild aortic valve stenosis, mean gradient 17.3 mmHg, DEAN 1.7 cm squared. Peak velocity of 2.83 m/s with a peak gradient of 30 mmHg. Bpqh-[id number]-vefhvruh aortic valve regurgitation. Thickened mitral valve. Trace to mild mitral valve regurgitation. Trace tricuspid valve regurgitation. Estimated pulmonary artery peak systolic pressure, within normal . There is no pericardial effusion. There are no intracardiac masses. No similar previous studies are available for comparison Dr Meme Leone MD [facility] (Electronically Signed) Final Date: 01 March 2022 19:06 S
== END 2022-03-01 06:02 | disposition home or self-care (01) ==
LOC: RAD 06:04
PROVIDERS: PCP Family Medicine; Visit Provider Family Medicine
DX: R01.1 Cardiac murmur, unspecified (principal); I35.0 Nonrheumatic aortic (valve) stenosis; I34.0 Nonrheumatic mitral (valve) insufficiency
CPT/HCPCS: 93306

== ENCOUNTER 2023-01-06 13:01 | Outpatient (CLI) | payer MEDICARE, OTHER, SELFPAY ==
--- NOTE | 2023-01-06 14:14 | XR_ITS ---
WS: [id number] KUB, AP view, 01/06/2023 Clinical Data: CHRONIC DIARRHEA Comparison: KUB, 02/20/2022 Findings: No abnormal intraabdominal masses are seen. There is no dilatated small bowel or evidence of obstruct ion. There is a large amount of fecal material throughout the colon. There may be calcifications overlying the right kidney. 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 XR/XR abdomen 1V* [id number] Impression: 1. Large amount of fecal material throughout the colon. 2. Possible right renal calcifications.
[2023-01-08 18:54] LABS: Galactose-alpha-1,3 IgE 0.89 kU/L (<0.10)
[2023-01-08 19:20] LABS: Beef (27) IgE 0.36 kU/L; Beef Class 1; Egg White (F1) Ige 0.41 kU/L; Egg White Class 1; Immunoglobulin E 129 kU/L (<OR=114); Lamb (F88) IgE 0.16 kU/L; Lamb Class 0/1; Maize Corn Class 0; Maize/Corn (F8) Ige <0.10 kU/L; Oat (F7) Ige <0.10 kU/L; Oat Class 0; Pork (F26) IgE <0.10 kU/L; Pork Class 0; Potato (F35) Ige 0.11 kU/L; Potato Class 0/1; Rye (F5) Ige 0.52 kU/L; Rye Class 1; Soybean (F14) Ige <0.10 kU/L; Soybean Class 0; Tomato Class 0/1; Wheat (F4) Ige 1.16 kU/L; Wheat Class 2
[2023-01-08 20:14] LABS: Allergen Beef Igg 12.6 mcg/mL (<2.0); Allergen Cacao (Chocolate) Igg 3.8 mcg/mL (<2.0); Allergen Chicken Meat Igg <2.0 mcg/mL (<2.0); Allergen Orange Igg 2.8 mcg/mL (<2.0); Allergen Peanut Igg 4.1 mcg/mL (<2.0); Barley (F6) Igg 17.2 mcg/mL (<2.0)
== END 2023-01-06 13:02 | disposition home or self-care (01) ==
PROVIDERS: PCP Family Medicine; Visit Provider Registered Nurse
DX: K52.9 Noninfective gastroenteritis and colitis, unspecified (principal); Z88.0 Allergy status to penicillin; K59.00 Constipation, unspecified
CPT/HCPCS: 74018; 86003; 86008

== ENCOUNTER → 2025-04-21 07:52 | Outpatient (BNVA) | payer MEDICARE, OTHER, SELFPAY | PROVIDERS: PCP Family Medicine; Referring Provider Nurse Practitioner Family; Visit Provider Psychiatry & Neurology Neurology | DX: R41.3 Other amnesia (principal); E55.9 Vitamin D deficiency, unspecified; K56.609 Unspecified intestinal obstruction, unspecified as to partial versus complete obstruction | CPT/HCPCS: 36415; 80053; 82233; 82234; 82306; 82542; 82607; 82746; 83520; 83735; 83921; 84439; 84443; 85025; 86592; 86617; 96116; 99203 ==

== ENCOUNTER 2025-05-05 12:48 | Outpatient (CLI) | payer MEDICARE, OTHER, SELFPAY ==
--- NOTE | 2025-05-05 13:00 | MR_ITS ---
WS: [id number] MRI BRAIN WITH AND WITHOUT CONTRAST HISTORY: R41.3 - Other amnesia COMPARISON: None available. TECHNIQUE: Multiplanar imaging performed through the brain with MultiHance 18 ml's IV. No acute infarcts are seen. Mild cerebral and cerebellar atrophy. Moderate T2 and FLAIR signal hyperintensities throughout the supratentorial white matter. No hemorrhage. Very mild hippocampal atrophy. No hemorrhage. Tiny lacunar infarct in the RIGHT cerebellum. Ventricles and extra-axial spaces are mildly prominent on the basis of atrophy. No prior infarct. Clivus and pituitary gland are normal. Visualized posterior fossa and brainstem are also normal. Postcontrast images are negative for masses or vascular malformations. Dural venous sinuses are normal. Paranasal sinuses: Well aerated with no significant disease. Mastoid air cells: Normal. Calvarium and scalp: Normal. MR/MR head wo/w con [id number] IMPRESSION: 1. No diffusion abnormality. 2. Moderate small vessel changes in the supratentorial white matter. No prior infarct. 3. Lacunar infarct RIGHT cerebellum. 4. Mild cerebral and cerebellar atrophy and hippocampal atrophy. 5. No vascular malformations or enhancing masses.
--- NOTE | 2025-05-05 13:45 | MR_ITS ---
WS: [id number] MRA CAROTID ARTERIES HISTORY: R41.3 - Other amnesia COMPARISON: None available. TECHNIQUE: MRA is performed with intravenous gadolinium. MIP and source images are reviewed. Right: Origin of the RIGHT common carotid artery is difficult to visualize due to artifact. The remaining common, internal/external carotid arteries are normal. No flow-limiting stenosis. Left: Origin of the LEFT common carotid artery is difficult to visualize. Common, internal and external carotid arteries are otherwise normal. No flow- limiting stenosis. Subclavian Arteries: Proximal subclavian arteries are not very well visualized. This is due to are breathing artifact. The remaining subclavian and axillary arteries are normal. Vertebral Arteries: Normal and codominant. MR/MR angio neck w con* [id number] IMPRESSION: 1. Normal vertebral arteries. 2. Normal cervical carotid arteries with no significant stenosis.
--- NOTE | 2025-05-05 14:30 | MR_ITS ---
WS: [id number] MRA ANGIOGRAPHY [place] HISTORY: R41.3 - Other amnesia COMPARISON: None available. TECHNIQUE: 3-D MR angiography is performed of the [place]. All images are reviewed including source images. Distal vertebral and basilar arteries are intact with no significant stenosis or plaque. Posterior cerebral arteries are normal course and caliber. Posterior communicating arteries are both patent. Intracranial portion of the internal carotid arteries are normal course and caliber. No significant atherosclerosis, stenosis or aneurysm identified. Middle and anterior cerebral arteries are both patent with no significant disease. Anterior communicating artery is also normal. MR/MR angio head wo con [id number] IMPRESSION: Normal MRA [place].
== END 2025-05-05 12:49 | disposition home or self-care (01) ==
LOC: RAD 12:48
PROVIDERS: PCP Family Medicine; Visit Provider Psychiatry & Neurology Neurology
DX: R41.3 Other amnesia (principal); I10 Essential (primary) hypertension; I67.82 Cerebral ischemia; G31.9 Degenerative disease of nervous system, unspecified
CPT/HCPCS: 70544; 70548; 70553